=== PATIENT | female | born 1980 | race Caucasian/White ===

== ENCOUNTER 2017-10-28 15:07 | Emergency (ER) | payer BC ==
[2017-10-28] MEDS ORDERED: Lactated Ringers 1,000 ML IV ONE (17:13)
[2017-10-28] MEDS ORDERED: Metoclopramide 10 MG/2 ML SDV IVPUSH ONE (17:13)
[2017-10-28] MEDS ORDERED: Sodium Chloride 0.9% 10 ML Syringe FLUSH PRN (17:13)
--- NOTE | 2017-10-28 17:24 | EDM.PDOC ---
ED HPI GENERAL MEDICAL PROBLEM - General Chief Complaint: Abdominal Pain Stated Complaint: LOWER R SIDE ABDOMINAL PAIN Time Seen by Provider: 10/28/17 17:04 Source of Information: Reports: Patient History Limitations: Reports: No Limitations - History of Present Illness INITIAL COMMENTS - FREE TEXT/NARRATIVE: 36-year-old female presents for evaluation and treatment of right lower quadrant abdominal pain. Patient reports that the pain started today. Patient reports that it is located in the right lower quadrant. Describes as a dull ache. Reports that the pain is 4/10 when she is not moving. 10 out of 10 with movement. Reports associated symptoms of nausea and a decreased appetite. No fevers, chills, vomiting, dysuria or hematuria. Patient reports that she had a left oophorectomy for a 6 pound ovarian cyst. She is scheduled see [facility] next Wednesday for a follow-up for "ovarian issues ". Patient also reports she had a tubal ligation. Right Lower Abdomen Pain Score (Numeric/FACES): 4 - Related Data Allergies Allergy/AdvReac Type Severity Reaction Status Date / Time No Known Allergies Allergy Verified 10/28/17 15:47 Home Meds: Home Meds . [No Known Home Meds] 10/28/17 [History] Past Medical History [facility] History: Reports: Other (See Below) Other OB/BYN History: ovarian cysts, left ovary removed Social & Family History - Tobacco Use Smoking Status *Q: Current Every Day Smoker Years of Tobacco use: 15 Packs/Tins Daily: 0.5 - Caffeine Use Caffeine Use: Reports: Coffee - Recreational Drug Use Recreational Drug Use: No ED ROS GENERAL - Review of Systems Review Of Systems: See Below Constitutional: Reports: Decreased Appetite. Denies: Fever, Chills Respiratory: Denies: Shortness of Breath Cardiovascular: Denies: Chest Pain GI/Abdominal: Reports: Abdominal Pain (RLQ), Decreased Appetite, Nausea. Denies : Hematochezia, Melena, Vomiting : Denies: Dysuria ED EXAM, GI/ABD - Physical Exam Exam: See Below Exam Limited By: No Limitations General Appearance: Alert, WD/WN, No Apparent Distress Throat/Mouth: Normal Inspection, Normal Lips, Normal Voice, No Airway Compromise Respiratory/Chest: No Respiratory Distress, Lungs Clear, Normal Breath Sounds Cardiovascular: Normal Peripheral Pulses, Regular Rate, Rhythm, No Murmur GI/Abdominal Exam: Normal Bowel Sounds, Tender (RLQ; pain at McBurnies point), Other (+ psosas sign, - obturator sign, minimal pain with heel percussion) Neurological: Alert, Oriented, Normal Cognition Psychiatric: Normal Affect, Normal Mood Skin Exam: Warm, Dry, Normal Color Course - Vital Signs Last Recorded V/S: Last Vital Signs Temp 36.3 C 10/28/17 15:43 Pulse 84 10/28/17 15:43 Resp 16 10/28/17 15:43 BP 128/89 10/28/17 15:43 Pulse Ox 100 10/28/17 15:43 - Orders/Labs/Meds Labs: Laboratory Tests 10/28/17 10/28/17 10/28/17 Range/Units 10:05 18:20 18:20 WBC 13.70 H (3.98-10.04) K/mm3 RBC 4.70 (3.98-5.22) M/mm3 Hgb 14.0 (11.2-15.7) gm/L Hct 42.4 (34.1-44.9) % MCV 90.2 (79.4-94.8) fl MCH 29.8 (25.6-32.2) pg MCHC 33.0 (32.2-35.5) g/dl RDW Std Deviation 45.3 (36.4-46.3) fL Plt Count 323 (182-369) K/mm3 MPV 10.1 (9.4-12.3) fl Neutrophils % (Manual) 62 H (40-60) % Band Neutrophils % 2 (0-10) % Lymphocytes % (Manual) 29 (20-40) % Atypical Lymphs % 0 % Monocytes % (Manual) 6 (2-10) % Eosinophils % (Manual) 1 (0.7-5.8) % Basophils % (Manual) 0 L (0.1-1.2) Platelet Estimate Adequate RBC Morph Comment Normal Sodium 139 (136-145) mEq/L Potassium 3.7 (3.5-5.1) mEq/L Chloride 104 (98-107) mEq/L Carbon Dioxide 23 (21-32) mEq/L Anion Gap 15.7 H (5-15) BUN 8 (7-18) mg/dL Creatinine 0.7 (0.55-1.02) mg/dL Est Cr Clr Drug Dosing 79.80 mL/min Estimated GFR (MDRD) > 60 (>60) mL/min BUN/Creatinine Ratio 11.4 L (14-18) Glucose 98 (74-106) mg/dL Calcium 8.7 (8.5-10.1) mg/dL Total Bilirubin 0.4 (0.2-1.0) mg/dL AST 17 (15-37) U/L ALT 29 (14-59) U/L Alkaline Phosphatase 102 (46-116) U/L C-Reactive Protein 3.3 H* (<1.0) mg/dL Total Protein 7.1 (6.4-8.2) g/dl Albumin 3.4 (3.4-5.0) g/dl Globulin 3.7 gm/dL Albumin/Globulin Ratio 0.9 L (1-2) Urine Color Yellow (Yellow) Urine Appearance Clear (Clear) Urine pH 6.5 (5.0-8.0) Ur Specific [place] 1.020 (1.005-1.030) Urine Protein Negative (Negative) Urine Glucose (UA) Negative (Negative) Urine Ketones Trace H (Negative) Urine Occult Blood Negative (Negative) Urine Nitrite Negative (Negative) Urine Bilirubin Negative (Negative) Urine Urobilinogen 0.2 (0.2-1.0) Ur Leukocyte Esterase Negative (Negative) Urine RBC Not seen (0-5) /hpf Urine WBC 0-5 (0-5) /hpf Ur Epithelial Cells 0-5 (0-5) /hpf Urine Bacteria Few (FEW) /hpf Urine Mucus Not seen (FEW) /hpf Meds: Medications Discontinued Medications Generic Name Dose Route Start Last Admin Trade Name Freq PRN Reason Stop Dose Admin Lactated Ringer's 1,000 mls @ 999 mls/hr 10/28/17 17:13 10/28/17 17:59 Ringers, Lactated IV 10/28/17 18:13 999 mls/hr .BOLUS ONE Administration Metoclopramide HCl 5 mg 10/28/17 17:13 10/28/17 17:59 Reglan IVPUSH 10/28/17 17:14 5 mg ONETIME ONE Administration Sodium Chloride 10 ml 10/28/17 17:13 10/28/17 18:00 Saline Flush FLUSH 10 ml ASDIRECTED PRN Administration Keep Vein Open - Re-Assessments/Exams Free Text/Narrative Re-Assessment/Exam: 10/28/17 19:36 Nursing staff came and inform me that the patient wanted to leave and signed out AGAINST MEDICAL ADVICE. I was unable to review any labs with her. She did not have her CT scan done. Attempted to contact the patient via telephone but she did not answer. nursing staff also attempted to contact her via telephone and message was left. Departure - Departure Time of Disposition: 19:05 Disposition: Against Medical Advice 07 Condition: Undetermined Clinical Impression: Abdominal pain - Discharge Information Referrals: Torres Rees MD [Primary Care Provider] - Forms: ED Department Discharge Additional Instructions: Patient signed his medical advice paperwork before I had a chance to review her labs and left the ER. Undetermined condition.
== END 2017-10-28 18:45 | disposition left against medical advice (07) ==
LOC: JD.ED 15:07
DX: R10.31 Right lower quadrant pain (principal); F17.210 Nicotine dependence, cigarettes, uncomplicated
CPT/HCPCS: 36415; 80053; 81001; 85025; 86140; 96361; 96374; 99284; J2765; J7050; J7120

== ENCOUNTER 2025-06-04 16:27 | Emergency (ER) | payer BC, OTHER ==
[2025-06-04] MEDS ORDERED: Sodium Chloride 0.9% 10 ML Syringe FLUSH PRN (17:02)
[2025-06-04 17:30] LABS: BASOPHILS ABSOLUTE AUTO 0.0 K/mm3 (0.0-0.2); BASOPHILS PERCENT AUTO 0.5 % (0.0-1.0); EOSINOPHILS ABSOLUTE AUTO 0.4 K/mm3 (0.0-0.4); EOSINOPHILS PERCENT AUTO 4.4 % (0.0-6.0); IMMATURE GRAN ABSOLUTE AUTO 0.03 K/mm3 (0.00-0.05); IMMATURE GRAN PERCENT AUTO 0.3 % (0.0-0.4); LYMPHOCYTES ABSOLUTE AUTO 1.8 K/mm3 (1.0-4.8); LYMPHOCYTES PERCENT AUTO 20.8 % (24.0-44.0); MEAN PLATELET VOLUME 9.8 fl (9.4-12.3); MONOCYTES ABSOLUTE AUTO 0.6 K/mm3 (0.0-0.8); MONOCYTES PERCENT AUTO 7.0 % (0.0-8.0); NEUTROPHILS ABSOLUTE AUTO 5.8 K/mm3 (1.8-7.7); NEUTROPHILS PERCENT AUTO 67.0 % (41.0-71.0); NRBC ABSOLUTE 0.00 (0.00-0.02); NRBC PERCENT 0.0 % (0.0-0.2); PLATELET COUNT,PLT 344 K/mm3 (150-400); RED BLOOD CELL COUNT 5.13 M/mm3 (4.10-5.30); WHITE BLOOD CELL COUNT,WBC 8.60 K/mm3 (3.9-11.3)
[2025-06-04 18:01] LABS: A/G RATIO 0.8 (1-2); ALANINE AMINOTRANSFERASE,ALT 54 U/L (14-59); ASPARTATE AMNIOTRANSFERASE,AST 30 U/L (15-37); BILIRUBIN TOTAL 0.4 mg/dL (0.2-1.0); BLOOD UREA NITROGEN,BUN 18 mg/dL (7-18); CARBON DIOXIDE,CO2 32 mEq/L (21-32); CHLORIDE,CL 105 mEq/L (98-107); CREATININE 0.8 mg/dL (0.55-1.02); EST CRCL DRUG DOSING (CG) 64.46 mL/min; ESTIMATED GFR 93 mL/min (>60); GLUCOSE RANDOM 90 mg/dL (70-99); PROTEIN TOTAL,TP 8.1 g/dl (6.4-8.2); SODIUM,NA 143 mEq/L (136-145); TROPONIN I HIGH SENSITIVITY < 4 pg/mL (<=51)
[2025-06-04 18:02] LABS: POTASSIUM,K 4.2 mEq/L (3.5-5.1)
== END 2025-06-04 19:39 | disposition home or self-care (01) ==
LOC: JD.ED 16:27
DX: R07.89 Other chest pain (principal); F17.200 Nicotine dependence, unspecified, uncomplicated; Z79.899 Other long term (current) drug therapy
CPT/HCPCS: 36415; 71045; 80053; 83880; 84484; 84703; 85025; 93005; 93970; 96372; 99284; J0696; Q0144; 93010; 99283; A9270-GY